=== PATIENT | female | born 1975 | race Caucasian/White ===

== ENCOUNTER → 2017-03-02 | Outpatient (CLI) | payer BC, OTHER ==
--- NOTE | 2017-03-04 10:16 | Diagnostic Imaging Report ---
Bilateral screening mammogram The current study was also evaluated with a Computer Aided Detection (CAD) system. Indication: Screening. No current complaints stated on the questionnaire. COMPARISON: 02/25/16 FINDINGS: The breasts are composed of scattered fibroglandular densities. Occasional punctate calcifications are seen. Allowing for technique and positional differences, no suspicious change is seen. IMPRESSION: No significant change. ACR BI-RADS Category 2: Benign findings. Result letter will be mailed to the patient. Note: At least 10% of breast cancer is not imaged by mammography. Dictated by: Dictated on workstation # [id number]
== END ==
LOC: RAD 14:59
PROVIDERS: ATTEND Family Medicine
DX: Z12.31 Encounter for screening mammogram for malignant neoplasm of breast (principal)
CPT/HCPCS: 77067

== ENCOUNTER → 2017-05-05 | Outpatient (CLI) | payer BC, OTHER ==
--- NOTE | 2017-05-05 18:04 | Diagnostic Imaging Report ---
INDICATION: Abnormal uterine bleeding. FINDINGS: The uterus measures 8 x 5.2 x 4.1 cm. There is a complex mass in the fundus of the uterus measuring approximately 2 cm in diameter. This does not show hypervascularity. The endometrial stripe is 8 mm and uniform in appearance. The right ovary measures 2.4 x 2.8 x 2.1 cm. The left ovary measures 3 x 2 x 2.3 cm. There is normal blood flow to both ovaries. IMPRESSION: 1. Myometrial mass measuring 2 cm, likely representing uterine fibroid. 2. Endometrium appears within normal limits. Dictated by: Dictated on workstation # [id number]
== END ==
LOC: RAD 16:32
PROVIDERS: ATTEND Obstetrics & Gynecology
DX: N85.8 Other specified noninflammatory disorders of uterus (principal); N94.5 Secondary dysmenorrhea; Z68.42 Body mass index [BMI] 45.0-49.9, adult
CPT/HCPCS: 76830; 76856

== ENCOUNTER 2017-06-09 07:47 | Outpatient (CLI) | payer BC, OTHER ==
[~2017-06-09] VITALS: Ht 167.6 cm; Wt 127.6 kg
[2017-06-09] MEDS ORDERED: ASCO500T5 PO (08:14)
[2017-06-09] MEDS ORDERED: BACI1TAB3 PO (08:14)
[2017-06-09] MEDS ORDERED: MAGN100T PO (08:14)
[2017-06-09] MEDS ORDERED: CHOL500061 PO (08:14)
[2017-06-09] MEDS ORDERED: CALC-210 PO (08:14)
[2017-06-09] MEDS ORDERED: JUICE PLUS PO (08:14)
[2017-06-09] MEDS ORDERED: CETI10CA PO (08:14)
[2017-06-09] MEDS ORDERED: MULT-610 PO (08:14)
[2017-06-09] MEDS ORDERED: SKELETAL STRENGTH PO (08:14)
[2017-06-09] MEDS ORDERED: VALE530C PO (08:14)
[2017-06-09 08:22] VITALS: BP 141/90
[2017-06-09 09:37] LABS: BASOPHILS % (AUTO) 1 % (0-10); EOSINOPHILS # (AUTO) 0.3 10^3/uL (0.0-0.3); EOSINOPHILS % (AUTO) 6 % (0-10); LYMPHOCYTES # (AUTO) 1.7 X 10^3 (1.0-4.0); LYMPHOCYTES % (AUTO) 31 % (12-44); MEAN CORPUSCULAR HEMOGLOBIN 26 PG (25-34); MEAN CORPUSCULAR HGB CONC 31 G/DL (32-36); MEAN CORPUSCULAR VOLUME 82 FL (80-99); MEAN PLATELET VOLUME 10.8 FL (7.4-10.4); MONOCYTES # (AUTO) 0.4 X 10^3 (0.0-1.0); MONOCYTES % (AUTO) 7 % (0-12); NEUTROPHILS % (AUTO) 55 % (42-75); PLATELET COUNT 307 10^3/uL (130-400); RED BLOOD COUNT 4.83 10^6/uL (4.35-5.85); RED CELL DISTRIBUTION WIDTH 15.7 % (10.0-14.5); WHITE BLOOD COUNT 5.4 10^3/uL (4.3-11.0)
== END 2017-06-09 09:42 | disposition home or self-care (01) ==
LOC: PREOP 07:47
PROVIDERS: ATTEND Obstetrics & Gynecology
DX: Z01.812 Encounter for preprocedural laboratory examination (principal); N93.9 Abnormal uterine and vaginal bleeding, unspecified; D25.9 Leiomyoma of uterus, unspecified
CPT/HCPCS: 36415; 85025; 86850; 86900; 86901; 87081

== ENCOUNTER 2017-06-16 07:30 | Day surgery (SDC) | payer BC, OTHER ==
[~2017-06-16] VITALS: Ht 167.6 cm; Wt 127.6 kg
[~2017-06-16 07:30] MED LIST: ASCO500T5 PO; BACI1TAB3 PO; BUPIVACAINE 0.25% 30 ML (SENSORCAINE) VIAL ONE; CALC-210 PO; CETI10CA PO; CHOL500061 PO; JUICE PLUS PO; MAGN100T PO; MULT-610 PO; SKELETAL STRENGTH PO; VALE530C PO
[2017-06-16] MEDS ORDERED: LACTATED RINGERS 1,000 ML IV PRN (07:51)
[2017-06-16 08:00] VITALS: BP 135/70
[2017-06-16] MEDS ORDERED: SCOPOLAMINE 1.5 MG (TRANSDERM-SCOP) PATCH TOP ONE (08:00)
[2017-06-16] MEDS ORDERED: ONDANSETRON 4 MG/2 ML (SDV) Z0FRAN IV ONE (08:00)
[2017-06-16] MEDS ORDERED: FAMOTIDINE 20MG/2ML IV (PEPCID) IV ONE (08:00)
[2017-06-16] MEDS ORDERED: proPOfol 200 MG/20 ML (DIPRIVAN) VIAL IV ONE (08:27)
[2017-06-16] MEDS ORDERED: SEVOFLURANE (ULTANE) 15 ML INHAL SOLN ONE (08:27)
[2017-06-16] MEDS ORDERED: MIDAZOLAM 2 MG/2 ML (VERSED) VIAL ONE (08:27)
[2017-06-16] MEDS ORDERED: ONDANSETRON 4 MG/2 ML (SDV) Z0FRAN ONE (08:27)
[2017-06-16] MEDS ORDERED: DEXAMETHASONE 10 MG/ML (DECADRON) 1 ML VIAL ONE (08:27)
[2017-06-16] MEDS ORDERED: fentaNYL INJECTION 100 MCG/2 ML AMP ONE (08:27)
[2017-06-16] MEDS ORDERED: LACTATED RINGERS 0 ML IV ONE (08:27)
[2017-06-16] MEDS ORDERED: LIDOCAINE PF 2% 5 ML (XYLOCAINE) VIAL ONE (08:27)
--- NOTE | 2017-06-16 09:01 | Progress Note-Pre Operative ---
Pre-Operative Progress Note H&P Reviewed The H&P was reviewed, patient examined and no changes noted. Date Seen by Provider: Jun 16, 2017 Time Seen by Provider: 09:00 Date H&P Reviewed: Jun 16, 2017 Time H&P Reviewed: 09:00 Pre-Operative Diagnosis: AUB, Fibroid uterus MICHAEL HINTON DO Jun 16, 2017 9:01 am
[2017-06-16] MEDS ORDERED: D5 LR IV SOLUTION 1,000 ML IV SCH (09:04)
--- NOTE | 2017-06-16 09:06 | Discharge Inst-Women's Service ---
Discharge Inst-Women's Serv Depart Medication/Instructions New, Converted or Re-Newed RX: RX on Chart Consults/Follow Up Additional Follow Up: Yes Orders/Referrals Dr. Hinton in 2-3 weeks Activity Activity: Activity as Tolerated Driving Instructions: No Driving for 1 Week NO SMOKING: NO SMOKING Nothing Inside Vagina: No Douching, No [place], No Tampons Diet Discharge Diet: No Restrictions Symptoms to Report to : Bleeding Excessive, Pain Increased, Fever Over 101 Degrees F, Vaginal Bleeding Increase, Questions/Concerns For Any Problems or Questions: Contact Your Physician Skin/Wound Care Bathing Instructions: Shower (x 1 week) MICHAEL HINTON DO Jun 16, 2017 09:06
[2017-06-16] MEDS ORDERED: ACET1TAB43 PO (09:07)
[2017-06-16] MEDS ORDERED: IBUP-1773 PO (09:07)
[2017-06-16] MEDS ORDERED: KETOROLAC 30 MG/ML VIAL IVP ONE ×2 (09:15→10:00)
[2017-06-16] MEDS ORDERED: ONDANSETRON 4 MG/2 ML (SDV) Z0FRAN IVP PRN ×2 (09:15→10:00)
[2017-06-16] MEDS ORDERED: APAP 300 MG/CODEINE 30 MG (TYLENOL #3) TAB PO PRN (09:15)
[2017-06-16] MEDS ORDERED: CATHETER FLUSH 10 ML SYR IV PRN (09:30)
[2017-06-16] MEDS ORDERED: morphine INJ 10 MG/ML 1ML (SYR OR VIAL) IVP PRN (10:00)
[2017-06-16] MEDS ORDERED: morphine INJ 10 MG/ML 1ML (SYR OR VIAL) ONE (10:17)
[2017-06-16 10:50] VITALS: BP 123/74
[2017-06-16 11:20] VITALS: BP 135/77
[2017-06-16 11:45] VITALS: BP 129/90
[2017-06-16] MEDS ORDERED: IBUPROFEN 600 MG (MOTRIN) TAB PO SCH (12:00)
--- NOTE | 2017-06-16 15:08 | OPERATIVE REPORT ---
DATE OF SERVICE: PREOPERATIVE DIAGNOSIS: 1. A 42-year-old female with fibroid uterus. 2. Abnormal uterine bleeding. 3. BMI of 45. POSTOPERATIVE DIAGNOSIS: 1. A 42-year-old female with fibroid uterus. 2. Abnormal uterine bleeding. 3. BMI of 45. 4. Left perivaginal wall cyst. PROCEDURE: Dilatation and curettage with video hysteroscopy and incision and drainage of left perivaginal wall cyst. SURGEON: Dr. Mikey Rebolledo ANESTHESIA: General endotracheal. ESTIMATED BLOOD LOSS: Minimal. URINE OUTPUT: 15 mL clear drained at the start of the procedure. FLUIDS: 1000 mL Lactated Ringer solution. FINDINGS: A slightly bulky and enlarged uterus on bimanual examination. No adnexal fullness or masses appreciated. A uniform appearing endometrial canal and cavity with no evidence of submucosal fibroid, as well as a left paravaginal wall cyst. Inside the hymenal ring, there is a cystic fluid-filled structure that is approximately 3 x 2 x 2 cm containing a brownish milky purulent material. SPECIMEN SENT: Left paravaginal wall cyst aspirate and endometrial curettings. INDICATIONS FOR PROCEDURE: This 42-year-old female is a consult to my office for abnormal uterine bleeding. WE discussed performing a D and C as a more conservative measure to not only give us tissue documentation, but also as potentially cured. Risks of the procedure discussed with the patient in detail including risk of bleeding, infection, damage to surrounding structures including, but not limited to the vagina, bowel, bladder, ureter and kidneys, risk for subsequent procedure, risk for blood transfusion. After everything was discussed with the patient, consent was obtained in the preoperative area and the patient taken to the operating room. OPERATIVE REPORT IN DETAIL: The patient was taken to the operating room and general anesthesia given. The patient was placed in the dorsal lithotomy position and prepped and draped in the normal sterile fashion. The bladder was then drained using straight catheterization. Upon insertion of a weighted speculum in the patient's vagina, I am able to visualize this left vaginal sidewall cystic structure that I described in my findings above. I decided to address that after I have proceeded with D and C, so I then grasped the cervix at 12 o'clock position using a long Allis clamp. I performed a paracervical block at 3 and 9 o'clock positions using 0.25% Marcaine. Care is taken to aspirate before injecting, a total 10 mL was used. I then gently sounded the uterine cavity depth which was found to be 8 cm. I then gently dilated the cervix using Adriana dilators to a maximum dilatation of approximately 6 mm at which point I directed a hysteroscope through the cervix into the intrauterine cavity and using normal saline as my visual medium, I am able to visualize an uniformly and grossly normal appearing endometrial cavity. Bilateral tubal ostia are demonstrated as well. There is no evidence of a large polyp formation or submucosal fibroid. There is copious amounts of endometrial tissue on the posterior uterine wall. I then removed the hysteroscope and proceeded with performing a curette and collecting all this tissue as endometrial curettings. I do this gently. Care was taken not to use too much force. Once this is performed, that tissue is collected and sent as endometrial curettings. I then grasped using my hands this paravaginal cyst. It palpates as fluid-filled at which point I decided to incise and drain this cystic structure. My underlying concerns being for a possible malignancy, but likely it is a Rodriguez stalk cyst. An incision is made in it using an 11 blade which drains a brownish milky purulent material which is sent for cytology. I then irrigate this incised cyst using normal saline. There is no active bleeding noted from it at which point I decide the procedure is complete. All other instruments are removed from the patient's vagina. The patient tolerated the procedure well and is taken to the recovery area in stable condition. Lap and sponge counts correct at the end of the procedure. Instrument counts correct as well. Job ID: [id number] DocumentID: [id number] Dictated Date: 06/16/2017 10:11:41 Trimming Assembler Date: 06/16/2017 15:07:37 Dictated By: DO MATTHEW DOSHI
== END 2017-06-16 11:48 | disposition home or self-care (01) ==
LOC: SDC 07:30
PROVIDERS: ATTEND Obstetrics & Gynecology
DX: N93.9 Abnormal uterine and vaginal bleeding, unspecified (principal); N89.8 Other specified noninflammatory disorders of vagina; E66.01 Morbid (severe) obesity due to excess calories; Z68.42 Body mass index [BMI] 45.0-49.9, adult
CPT/HCPCS: 84703; 94664

== ENCOUNTER → 2018-03-30 | Outpatient (CLI) | payer BC, OTHER ==
[~2018-03-30] MED LIST changes: +ACET1TAB43 PO; -BUPIVACAINE 0.25% 30 ML (SENSORCAINE) VIAL ONE; +IBUP-1773 PO
--- NOTE | 2018-03-30 15:59 | Diagnostic Imaging Report ---
EXAMINATION: Ultrasound pelvis. DATE: March 30, 2018. INDICATION: 43-year-old female, dysfunctional uterine bleeding. Menorrhagia. Uterine leiomyoma. COMPARISON: May 05, 2017. TECHNIQUE: A sonogram of the pelvis was performed utilizing transabdominal and endovaginal approaches assessing wilde-scale appearance, spectral Doppler analysis, and color Doppler flow. FINDINGS: The uterus measures 8.4 x 5.2 x 4.0 cm. There is a heterogeneously hypoechoic lesion in the uterus measuring 1.9 x 2.5 x 1.8 cm in size which most likely relates to a uterine leiomyoma. The endometrium measures 0.8 cm in diameter. The right ovary is not well seen and obscured by bowel. The left ovary measures 3.0 cm x 2.8 cm x 2.4 cm. No adnexal lesion is seen. There is blood flow to the left ovary based on color Doppler and spectral Doppler imaging. No free pelvic fluid is demonstrated. IMPRESSION: 1. Intrauterine lesion most likely relating to leiomyoma measuring 1.9 x 2.5 x 1.8 cm in size. 2. Endometrial thickness of 8 mm. 3. Unremarkable appearance of the left ovary. 4. The right ovary is not well seen. 5. No demonstrated free pelvic fluid. Dictated by: Dictated on workstation # [id number]
== END ==
LOC: RAD 15:10
PROVIDERS: ATTEND Obstetrics & Gynecology
DX: D25.1 Intramural leiomyoma of uterus (principal); Z68.41 Body mass index [BMI] 40.0-44.9, adult
CPT/HCPCS: 76830; 76856

== ENCOUNTER 2018-05-12 08:27 | Outpatient (CLI) | payer BC, OTHER ==
[~2018-05-12] VITALS: Ht 167.6 cm; Wt 122.5 kg
[2018-05-12 08:39] VITALS: BP 143/90
[2018-05-12 09:20] LABS: BASOPHILS % (AUTO) 1 % (0-10); EOSINOPHILS # (AUTO) 0.2 10^3/uL (0.0-0.3); EOSINOPHILS % (AUTO) 3 % (0-10); HEMATOCRIT 39 % (35-52); HEMOGLOBIN 12.8 G/DL (11.5-16.0); LYMPHOCYTES # (AUTO) 1.7 X 10^3 (1.0-4.0); LYMPHOCYTES % (AUTO) 30 % (12-44); MEAN CORPUSCULAR HEMOGLOBIN 28 PG (25-34); MEAN CORPUSCULAR HGB CONC 33 G/DL (32-36); MEAN CORPUSCULAR VOLUME 85 FL (80-99); MEAN PLATELET VOLUME 10.1 FL (7.4-10.4); MONOCYTES # (AUTO) 0.4 X 10^3 (0.0-1.0); MONOCYTES % (AUTO) 7 % (0-12); NEUTROPHILS # (AUTO) 3.3 X 10^3 (1.8-7.8); NEUTROPHILS % (AUTO) 59 % (42-75); PLATELET COUNT 336 10^3/uL (130-400); RED BLOOD COUNT 4.58 10^6/uL (4.35-5.85); RED CELL DISTRIBUTION WIDTH 13.8 % (10.0-14.5); WHITE BLOOD COUNT 5.6 10^3/uL (4.3-11.0)
== END 2018-05-12 09:10 | disposition home or self-care (01) ==
LOC: PREOP 08:27
PROVIDERS: ATTEND Obstetrics & Gynecology
DX: Z01.812 Encounter for preprocedural laboratory examination (principal); Z11.2 Encounter for screening for other bacterial diseases; D25.9 Leiomyoma of uterus, unspecified; N92.0 Excessive and frequent menstruation with regular cycle; N94.6 Dysmenorrhea, unspecified
CPT/HCPCS: 36415; 85025; 87081

== ENCOUNTER 2018-05-25 06:23 | Day surgery (SDC) | payer BC, OTHER ==
[~2018-05-25] VITALS: Ht 167.6 cm; Wt 122.5 kg
[2018-05-25 06:40] VITALS: BP 136/90
[2018-05-25] MEDS ORDERED: LACTATED RINGERS 1,000 ML IV ONE ×2 (06:41→07:14)
[2018-05-25] MEDS ORDERED: metroNIDAZOLE 500MG/100ML IVPB 100 ML IV ONE (06:45)
[2018-05-25] MEDS ORDERED: ceFAZolin 2 GM IV Premixed 50 ML IV ONE (06:45)
[2018-05-25] MEDS ORDERED: BUPIVACAINE 0.25% 30 ML (SENSORCAINE) VIAL ONE (07:09)
[2018-05-25] MEDS ORDERED: proPOfol 200 MG/20 ML (DIPRIVAN) VIAL IV ONE (07:14)
[2018-05-25] MEDS ORDERED: LIDOCAINE PF 2% 2 ML (XYLOCAINE) VIAL ONE (07:14)
[2018-05-25] MEDS ORDERED: ROCURONIUM 10 MG/ML 5 ML SYRINGE IV ONE (07:14)
[2018-05-25] MEDS ORDERED: ONDANSETRON 4 MG/2 ML (SDV) Z0FRAN ONE (07:14)
[2018-05-25] MEDS ORDERED: fentaNYL INJECTION 100 MCG/2 ML AMP ONE (07:15)
[2018-05-25] MEDS ORDERED: MIDAZOLAM 2 MG/2 ML (VERSED) VIAL ONE (07:15)
[2018-05-25] MEDS ORDERED: CATHETER FLUSH 10 ML SYR IV PRN (07:15)
[2018-05-25] MEDS ORDERED: DEXAMETHASONE 10 MG/ML (DECADRON) 1 ML VIAL ONE (07:18)
[2018-05-25] MEDS ORDERED: SEVOFLURANE (ULTANE) 15 ML INHAL SOLN ONE ×7 (07:18→09:32)
[2018-05-25] MEDS: LACTATED RINGERS 1,000 ML IV PRN ×2 (07:30→09:05)
--- NOTE | 2018-05-25 07:30 | History & Physical-Surgical ---
HPO-Surgical History of Present Illness Chief Complaint: Menorrhagia Dysmenorrhea Diagnosis/Surgical Indication: AUB, Fibroid uterus Procedure: D&C, HYSTEROSCOPY Date of Surgery: May 25, 2018 Weight (Pounds): 270 Weight (Ounces): 0.0 Height (Feet): 5 Height (Inches): 6.00 Allergies and Home Medications Allergies Coded Allergies: Penicillins (Verified Allergy, Unknown, CHILDHOOD ALLERGY, HAS HAD AN ADULT WITHOUT PROBLEMS, 05/12/18) Sulfa (Sulfonamide Antibiotics) (Verified Allergy, Unknown, HIVE/DYSPNEA, 06/09/17) Home Medications Ascorbic Acid 500 Mg Tab.chew, 2,000 MG PO DAILY, (Reported) Bacillus Coagulans 1 Each Tab.chew, 2 EACH PO DAILY, (Reported) Cetirizine HCl 10 Mg Capsule, 10 MG PO DAILY, (Reported) Multivitamin W/Iron, Minerals 1 Each Tab.chew, 1 EACH PO DAILY, (Reported) [Juice Plus] , 2 TAB PO DAILY, (Reported) [Skeletal Strength] , 2 TAB PO DAILY, (Reported) Patient Home Medication List Home Medication List Reviewed: Yes Past Qlxhorr-Guievr-Aibxcw Hx Patient Social History Alcohol Use: Occasionally Uses Recreational Drug Use: No Smoking Status: Former Smoker Recent Foreign Travel: No Contact w/other who traveled: No Recent Hopitalizations: No Recent Infectious Disease Expo: No Immunizations Up To Date Tetanus Booster (TDap): Unknown Pediatric: No Seasonal Allergies Seasonal Allergies: Yes Surgeries Yes (d&c) Gallbladder Respiratory Yes (CHILDHOOD ASTHMA) Cardiovascular No Neurological Yes (RELATED TO GLUTEN) Headaches /Migraines Reproductive System Hx Reproductive Disorders: Yes (AUB, FIBROID UTERUS) Sexually Transmitted Disease: No HIV/AIDS: No Female Reproductive Disorders: Menstrual Problems Genitourinary No Gastrointestinal Yes (GLUTEN allergy) Musculoskeletal Yes (FROM FIBROIDS) Chronic Back Pain Endocrine History of Endocrine Disorders: No HEENT History of HEENT Disorders: No Loss of Vision: Bilateral Hearing Impairment: Denies Cancer No Psychosocial History of Psychiatric Problem: Yes Behavioral Health Disorders: Anxiety, Depression Integumentary History of Skin or Integumenta: No Blood Transfusions History of Blood Disorders: Yes (MILD ANEMIA) Adverse Reaction to a Blood Tr: No (N/A) Family Medical History Family Hx: Alcoholism G8 BROTHER Diabetes mellitus 19 MOTHER Hypertension 19 FATHER 19 MOTHER Exam Vital Signs Vital Signs 05/25/18 06:40 Temp 98.2 Pulse 96 Resp 18 B/P (MAP) 136/90 (105) Pulse Ox 96 O2 Delivery Room Air Capillary Refill : Labs Laboratory Tests Test 05/25/18 06:25 Range/Units Urine Test NEGATIVE NEGATIVE General Appearance: Alert, Oriented X3 HEENT: Atraumatic Respiratory: Clear to Auscultation Cardiovascular: Regular Rate Abdominal: Normal Bowel Sounds Psych/Mental Status: Mental Status NL Assessment/Plan Assessment and Plan Diagnosis: 43 yo female w/ Menorrhagia Dysmenorrhea Fibroid uterus BMI 42 P: I discussed with her the risk/benefits/alternatives of a hysterectomy as well as , possible BSO. Alternative were discussed including endometrial ablaton, uterine artery embolization and hormonal therapy. Risk of hysterectomy itself was discussed with the patient in detail including but not limited to risk of bleeding, infection, risk of damaging surrounding structures around the uterus, including but not limited to the bladder, ureters, kidneys, bowel, and the uterus itself. Risk from anesthesia also a risk of possible blood transfusion were discussed with the patient as well. All of her questions were answered she was agreeable to these risk at the time of discussion consent will be obtained prior to the surgery being performed. Admission Diagnosis 43 yo female w/ Menorrhagia Dysmenorrhea Fibroid uterus BMI 42 Reason for Inpatient Admission: Hysterectomy s/p RATLH w/ possible BSO Menorrhagia Dysmenorrhea Fibroid uterus MICHAEL HINTON DO May 25, 2018 7:30 am
[2018-05-25] MEDS ORDERED: LACTATED RINGERS 1,000 ML IV SCH (07:31)
--- NOTE | 2018-05-25 07:31 | Discharge Inst-Women's Service ---
Discharge Inst-Women's Serv Depart Medication/Instructions New, Converted or Re-Newed RX: RX on Chart Consults/Follow Up Additional Follow Up: Yes Orders/Referrals Dr. Rebolledo in 7-10 days and in 8 weeks Activity Activity: Activity as Tolerated Driving Instructions: No Driving for 1 Week NO SMOKING: NO SMOKING Nothing Inside Vagina: No Douching, No [place], No Tampons Diet Discharge Diet: No Restrictions Symptoms to Report to : Bleeding Excessive, Pain Increased, Fever Over 101 Degrees F, Vaginal Bleeding Increase, Questions/Concerns For Any Problems or Questions: Contact Your Physician Skin/Wound Care Infection Signs and Symptoms: Increased Redness, Foul Odor of Wound, Increased Drainage, Skin Itchy or Has a Rash, Increased Swelling, Temperature Above 101 F Operative Area Clean and Dry: Keep Incision Clean/Dry Stitches/Chiquis/Dermabond: Dermabond, Care of Stitches Bathing Instructions: MICHAEL Turner DO May 25, 2018 7:31 am
[2018-05-25] MEDS ORDERED: SIMETHICONE 80 MG (MYLICON) CHEW PO PRN (07:45)
[2018-05-25] MEDS ORDERED: DOCUSATE SODIUM 100 MG (COLACE) CAP PO PRN (07:45)
[2018-05-25] MEDS ORDERED: ONDANSETRON 4 MG/2 ML (SDV) Z0FRAN IV PRN (07:45)
[2018-05-25] MEDS ORDERED: CHLORASEPTIC LOZENGE MM PRN (07:45)
[2018-05-25] MEDS ORDERED: HYDROcodone/APAP 7.5 MG/325 MG (LORTAB, LORCET PLUS) TABLET PO PRN (07:45)
[2018-05-25] MEDS ORDERED: ANTACID SUSP 30 ML UDC (MYLANTA) PO PRN (07:45)
[2018-05-25] MEDS ORDERED: ZOLPIDEM 5 MG (AMBIEN) TAB PO PRN (07:45)
[2018-05-25] MEDS ORDERED: DOCU100C37 PO (07:59)
[2018-05-25] MEDS ORDERED: HYDR-34 PO (07:59)
[2018-05-25] MEDS ORDERED: SIME80TA16 PO (07:59)
[2018-05-25] MEDS ORDERED: IBUP-844 PO (07:59)
[2018-05-25] MEDS: KETOROLAC 30 MG/ML VIAL IV PRN ×2 (09:20→14:50)
[2018-05-25] MEDS ORDERED: morphine INJ 10 MG/ML 1ML (SYR OR VIAL) ONE (09:31)
[2018-05-25] MEDS ORDERED: GLYCOPYRROLATE 0.2 MG/ML (ROBINUL) 2 ML VIAL ONE (09:31)
[2018-05-25] MEDS ORDERED: NEOSTIGMINE 1 MG/ML 5 ML SYRINGE ONE (09:31)
[2018-05-25] MEDS ORDERED: morphine INJ 10 MG/ML 1ML (SYR OR VIAL) IVP ONE (10:00)
[2018-05-25] MEDS ORDERED: ONDANSETRON 4 MG/2 ML (SDV) Z0FRAN IVP PRN (10:00)
[2018-05-25] MEDS ORDERED: MEPERIDINE (DEMEROL) INJ 50 MG/ML ONE (10:05)
[2018-05-25] MEDS ORDERED: PROMETHAZINE INJ 25 MG/ML (PHENERGAN) AMP ONE (10:16)
[2018-05-25] MEDS ORDERED: SCOPOLAMINE 1.5 MG (TRANSDERM-SCOP) PATCH ONE (10:18)
[2018-05-25] MEDS ORDERED: PROMETHAZINE INJ 25 MG/ML (PHENERGAN) AMP IVP ONE (10:30)
[2018-05-25] MEDS ORDERED: MEPERIDINE (DEMEROL) INJ 50 MG/ML IVP ONE (10:30)
[2018-05-25] MEDS ORDERED: SCOPOLAMINE 1.5 MG (TRANSDERM-SCOP) PATCH TD ONE (10:30)
[2018-05-25 11:00] VITALS: BP 114/70
[2018-05-25 14:00] VITALS: BP 119/73
--- NOTE | 2018-05-25 14:47 | OPERATIVE REPORT ---
DATE OF SERVICE: PREOPERATIVE DIAGNOSES: 1. A 43-year-old female with abnormal uterine bleeding. 2. Dysmenorrhea. 3. Fibroid uterus. 4. BMI of 42. POSTOPERATIVE DIAGNOSES: 1. A 43-year-old female with abnormal uterine bleeding. 2. Dysmenorrhea. 3. Fibroid uterus. 4. BMI of 42. PROCEDURE: Robotic-assisted total laparoscopic hysterectomy and bilateral salpingectomy. SURGEON: Mikey Hinton DO MEDICAL RESEARCHER: JULIET hTeodore. ANESTHESIA: General endotracheal. ESTIMATED BLOOD LOSS: Minimal. URINE OUTPUT: 35 mL, clear at the end of the procedure. FLUIDS: 1100 mL lactated Ringer's solution. FINDINGS: A fibroid uterus with multiple subserosal fibroids, some of them as large as 2 cm, but the majority of them were subcentimeter in size. Grossly normal appearing bilateral fallopian tubes and ovaries as well as some filmy adhesions of the fallopian tube to the descending, sigmoid colon and posterior pelvic peritoneum. SPECIMEN SENT: Uterus, bilateral fallopian tubes. INDICATIONS FOR PROCEDURE: This 43-year-old female is a patient who had seen in my office for the past year. We had initially tried to do with her bleeding, doing a D and C in the past, which revealed normal appearing endometrial tissue. However, she continued to have ongoing heavy periods and painful periods likely secondary to fibroid uterus, which had been discovered on ultrasound. We discussed more conservative measures; however, the patient wishes to proceed with more aggressive measures as she has tried more conservative measures in the past without any success or resolution. Risks of the procedure were discussed with the patient in detail including risk of bleeding, infection, damage to surrounding structures including, but not limited to bowel, bladder, ureter, kidneys; preoperative and postoperative expectations as well as recovery time and risks from anesthesia; need for blood transfusion, even were discussed with the patient. After everything was discussed and all of her questions were answered with her and her present, consent was obtained and the patient was taken to the operating room. OPERATIVE REPORT IN DETAIL: Once in the operating room, general anesthesia was found to be adequate, placed in dorsal lithotomy position, prepped and draped in normal sterile fashion. A Bailey catheter was placed using sterile technique. A weighted speculum was inserted to the patient's vagina. A right angle retractor was used to visualize the cervix, which was grasped at 12 o'clock position using a long single tooth tenaculum. I then placed a 0 Vicryl suture through the anterior lip of the cervix and removed the tenaculum. This served as my retraction point on the cervix from there. I gently sounded the uterine cavity, depth was found to be 7 cm. I then selected a 7-cm Kim uterine manipulator tip and a 4-cm colpotomy ring, advancing the Kim uterine manipulator tip into the endometrial cavity. I deployed the balloon and advanced the colpotomy ring around the vaginal fornix. After which, I was able to appreciate bimanual manipulation on bimanual exam. I removed all the other instruments from the patient's vagina leaving the Bailey catheter in place. I performed a change of gloves and took my attention to the abdomen where supraumbilically I infiltrated this area using 0.25% Marcaine. I made an 8 mm incision and directed a Veress needle through the incision until intraperitoneal placement was confirmed using a saline drop test. I attempted on multiple occasions to insufflate; however, opening pressure continued to be elevated somewhere in the 17 to 18 despite retraction on the abdomen upward to release abdominal pressure. I therefore went with the Veress needle in the left upper quadrant mid costal line approximately 2 to 3 fingerbreadths below the subcostal margin. Once I placed the Veress needle, I was able to confirm intraperitoneal placement using the saline drop test. I then proceeded with insufflation from this point using CO2 gas and opening pressure of 4 mmHg. Then, I proceeded to a maximum pressure of 15 mmHg, at which point I removed the Veress needle and I was able to introduce an 8 mm blunt da Otilio camera trocar through the supraumbilical trocar incision site. Once this was in place, I was able to shook machine operator insufflation to this trocar site and able to confirm intraperitoneal placement using the da Otilio laparoscope. I then had the patient placed in steep Trendelenburg after evaluating the left upper quadrant anatomy which appeared to be normal and no damage of injury with my Veress needle. Once in steep Trendelenburg, I was able to visualize all the pelvic anatomy described in my findings above. I placed 2 lateral trocars, these were both 8-mm trocars. The skin was infiltrated using 0.25% Marcaine. I made 8-mm incision and directed the trocars through the incision until intraperitoneal placement was confirmed using the da Otilio laparoscope. Once these were in place, I was able to bring in the da Otilio robot and docked in the appropriate fashion. I started the procedure by using the vessel sealer in my left hand and monopolar elizabeth in the right hand. I then took my attention to the operative console where I performed the following dissection bilaterally starting at the uteroovarian ligaments bipolar cauterized and transected using the vessel sealer. I then created a window in the mesosalpinx using the monopolar elizabeth and taken this laterally using the vessel sealer dissecting the fallopian tube from its surrounding blood supply and amputating it from the distal ampullary connection point. I then grasped the round ligament, bipolar cauterized and transected using the vessel sealer, and then, I was able to grasp the entire broad ligament, bipolar cauterized and transected using the vessel sealer down to the level of the lower uterine segment, at which point I the anterior and posterior leaflets of the broad ligament. The anterior leaflet dissection was taken down to the anterior vaginal fornix. The posterior leaflet was taken down to the posterior vaginal fornix, which allowed me to skeletonize the uterine vessels laterally, which I bipolar cauterized and transected using the vessel sealer. I then created a colpotomy at 12 o'clock position using the monopolar elizabeth and took this circumferentially around my colpotomy ring, amputating the cervix away from the vaginal fornix. The entire specimen was then able to be removed through the vagina. I then proceeded with closing the vaginal cuff and the lateral vaginal apices. Using 2-0 Vicryl suture, I colposuspended them to the uterosacral ligaments from this closure site. I then closed the remainder of the vaginal cuff using 2-0 V-Loc in a running fashion. There was no active bleeding noted from any of my dissection planes. At this point, I undocked the da Otilio robot and proceeded with the remainder of the case laparoscopically. I then copiously irrigated the pelvis using normal saline. Once again, there was no active bleeding noted from any of my dissection planes. I placed FloSeal hemostatic agent over all my planes of dissection to ensure excellent postoperative hemostasis. I then had the patient taken out of steep Trendelenburg and removed the lateral trocars under direct visualization of the laparoscope. The supraumbilical trocar was left in place both to release insufflation and to introduce 10 mL of 0.25% Marcaine into the peritoneal cavity for postoperative pain management. I then removed this trocar as well. The skin was then reapproximated using 4-0 Monocryl and interrupted subcuticular stitch. Dermabond was applied to the incision and Band-Aids were placed over those incision sites. The left upper quadrant puncture site is reapproximated using Dermabond as well. Bailey catheter was left in place. Lap and sponge counts were correct at the end of the procedure. Instrument count was correct as well. The patient tolerated the procedure well and was taken to recovery area in stable condition. Ancef, 2 grams, and 500 mg of Flagyl were given preoperatively for infection prophylaxis. Job ID: [id number] DocumentID: [id number] Dictated Date: 05/25/2018 09:54:21 Maintenance Team Leader Date: 05/25/2018 14:47:24 Dictated By: MIKEY HINTON DO
[2018-05-26] MEDS ORDERED: IBUPROFEN 600 MG (MOTRIN) TAB PO PRN (00:15)
== END 2018-05-25 18:10 | disposition home or self-care (01) ==
LOC: SDC 06:23 → WS 11:00 → SDC 18:10
PROVIDERS: ATTEND Obstetrics & Gynecology
DX: D25.1 Intramural leiomyoma of uterus (principal); D25.2 Subserosal leiomyoma of uterus; N80.0 Endometriosis of uterus; N83.8 Other noninflammatory disorders of ovary, fallopian tube and broad ligament; N92.0 Excessive and frequent menstruation with regular cycle; N94.6 Dysmenorrhea, unspecified; Z68.41 Body mass index [BMI] 40.0-44.9, adult; Z87.891 Personal history of nicotine dependence
CPT/HCPCS: 84703; 86850; 86900; 86901

== ENCOUNTER → 2019-08-20 | Outpatient (CLI) | payer BC, OTHER ==
[~2019-08-20] MED LIST changes: +ASCO-413 PO; -ASCO500T5 PO; +DOCU100C37 PO; +HYDR-34 PO; +IBUP-844 PO; +SIME80TA16 PO
--- NOTE | 2019-08-20 10:40 | Diagnostic Imaging Report ---
INDICATION: Screening The current study was also evaluated with a Computer Aided Detection (CAD) system. 3-D Tomographic imaging was also performed. Comparison made with prior examination of 03/02/2017. FINDINGS: There are scattered fibroglandular densities bilaterally. There is no dominant mass, spiculated lesion or suspicious calcifications identified. There are a few benign type calcifications. Skin and nipples and axilla are unremarkable. IMPRESSION: Category 2 benign. ACR BI-RADS Category 2: Benign findings. Result letter will be mailed to the patient. Note: At least 10% of breast cancer is not imaged by mammography. Dictated by: Dictated on workstation # [id number]
== END ==
LOC: RAD 09:15
PROVIDERS: ATTEND Obstetrics & Gynecology
DX: Z12.31 Encounter for screening mammogram for malignant neoplasm of breast (principal)
CPT/HCPCS: 77067

== ENCOUNTER 2019-10-08 12:15 | Outpatient (RCR) | payer OTHER ==
[~2019-10-08 12:15] MED LIST changes: -ASCO-413 PO; +ASCO500T71 PO
== END 2020-01-06 | disposition home or self-care (01) ==
LOC: CARD 12:15
PROVIDERS: ATTEND Internal Medicine
DX: I49.3 Ventricular premature depolarization (principal); I49.1 Atrial premature depolarization
CPT/HCPCS: 93225; 93226

== ENCOUNTER → 2021-09-29 | Outpatient (CLI) | payer OTHER ==
--- NOTE | 2021-09-29 19:12 | Diagnostic Imaging Report ---
INDICATION: Routine screening. COMPARISON is made with prior mammograms from 08/20/2019 and 03/02/2017. 2-D and 3-D bilateral screening mammography was performed with CAD. Scattered fibroglandular densities are identified bilaterally. The parenchymal pattern is stable. No mass or malignant-appearing microcalcifications are seen. Axillae are unremarkable. IMPRESSION: BI-RADS Category 1 No mammographic features suspicious for malignancy are identified. ACR BI-RADS Category 1: Negative. Result letter will be mailed to the patient. Note: At least 10% of breast cancer is not imaged by mammography. Dictated by: Dictated on workstation # [id number]
== END ==
LOC: RAD 15:15
PROVIDERS: ATTEND Obstetrics & Gynecology
DX: Z12.31 Encounter for screening mammogram for malignant neoplasm of breast (principal)
CPT/HCPCS: 77063; 77067

== ENCOUNTER → 2021-12-04 | Outpatient (CLI) | payer OTHER ==
--- NOTE | 2021-12-04 15:57 | Diagnostic Imaging Report ---
PROCEDURE: US Non-ob pelvis comp/trans. TECHNIQUE: Multiple Real-time grayscale images were obtained of the pelvis in various projections transabdominally and endovaginally. Transabdominal imaging was also performed. INDICATION: 46-year-old female, acute pelvic pain, perineal pain. COMPARISON: 03/30/2018. FINDINGS: Post hysterectomy changes. Right ovary 3.1 x 3.2 x 1.9 cm. Left ovary 3.5 x 2.2 x 1.9 cm. Ovaries have an unremarkable appearance but are limited in their assessment on both transabdominal and transvaginal imaging. Blood flow cannot be definitively confirmed to either ovary. IMPRESSION: 1. Post hysterectomy. 2. The ovaries are very limited in assessment with a generally unremarkable appearance. Blood flow cannot be confirmed to either ovary. Dictated by: Dictated on workstation # [id number]
== END ==
LOC: RAD 14:00
PROVIDERS: ATTEND Obstetrics & Gynecology
DX: R10.2 Pelvic and perineal pain (principal); Z90.710 Acquired absence of both cervix and uterus
CPT/HCPCS: 76830; 76856

== ENCOUNTER → 2023-07-26 | Outpatient (CLI) | payer OTHER ==
[~2023-07-26] MED LIST changes: +ACET-11 PO; -ACET1TAB43 PO
--- NOTE | 2023-07-26 10:28 | Diagnostic Imaging Report ---
EXAMINATION: 3D bilateral screening mammogram with CAD. INDICATION: Screening. COMPARISON: This study was compared to the prior exams of 09/29/2021 and 08/20/2019. PERSONAL HISTORY: At this time, there are no current complaints. FINDINGS: The breasts are almost entirely fatty. There has been no significant change when compared to the prior exam. There is no primary or secondary sign of malignancy noted. IMPRESSION: There is no radiographic evidence for malignancy. ACR BI-RADS Category 1: Negative. Result letter will be mailed to the patient. Note: At least 10% of breast cancer is not imaged by mammography. Dictated by: Dictated on workstation # [id number]
== END ==
LOC: RAD 07:39
PROVIDERS: ATTEND Obstetrics & Gynecology
DX: Z12.31 Encounter for screening mammogram for malignant neoplasm of breast (principal)
CPT/HCPCS: 77063; 77067